=== PATIENT | male | born 1955 | race Caucasian/White ===

== ENCOUNTER 2021-07-20 08:28 | Outpatient (CLI) | payer BC ==
[2021-07-20 19:25] LABS: SARS-CoV-2 PCR by NAA Not Detected (NotDetected)
== END 2021-07-20 08:29 | disposition home or self-care (01) ==
LOC: CSHLAB 08:28
PROVIDERS: ATTEND Internal Medicine Gastroenterology
DX: Z20.822 Contact with and (suspected) exposure to COVID-19 (principal); Z12.11 Encounter for screening for malignant neoplasm of colon
CPT/HCPCS: U0003; U0005

== ENCOUNTER 2021-07-23 09:54 | Day surgery (SDC) | payer BC ==
[2021-07-20 10:13] VITALS: BMI 34.8
[2021-07-23] MEDS ORDERED: Lidocaine 1% MPF 2 ML VIAL ONE (10:34)
[2021-07-23] MEDS ORDERED: Lidocaine 1% PF 5 ML VIAL ONE (11:04)
[2021-07-23] MEDS ORDERED: PROPOFOL 20 ML ONE ×2 (11:04→11:29)
== END 2021-07-23 12:40 | disposition home or self-care (01) ==
LOC: CSHSDC 09:54
PROVIDERS: ATTEND Internal Medicine Gastroenterology
PROC: 0DJD8ZZ Inspection of Lower Intestinal Tract, Via Natural or Artificial Opening Endoscopic (ICD-10-PCS; principal; 2021-07-23)
DX: Z12.11 Encounter for screening for malignant neoplasm of colon (principal); K64.9 Unspecified hemorrhoids
CPT/HCPCS: J2704